=== PATIENT | female | born 1960 | race Caucasian/White ===

== ENCOUNTER 2017-12-25 03:15 | Inpatient (IN) | END 2017-12-27 20:20 | disposition home or self-care (01) | DRG 445 ==

== ENCOUNTER 2018-01-01 13:39 | Emergency (ER) | END 2018-01-01 17:28 | disposition left against medical advice (07) ==

== ENCOUNTER 2018-01-04 21:22 | Inpatient (IN) | END 2018-01-09 16:50 | disposition home or self-care (01) | DRG 418 ==